=== PATIENT | male | born 1975 | race Caucasian/White ===

== ENCOUNTER 2016-11-06 07:15 | Emergency (ER) | payer BC ==
[2016-11-06] MEDS ORDERED: TETRACAINE HCL 0.5% OPH SOLN 2 ML OS ONE (09:36)
--- NOTE | 2016-11-06 10:04 | RADIOLOGY REPORT (SQ) ---
EXAM DESCRIPTION: CT HEAD WITHOUT COMPLETED DATE/TIME: 11/06/2016 9:52 am REASON FOR STUDY: headache COMPARISON: None. TECHNIQUE: Axial images acquired through the brain without intravenous contrast. Images reviewed wi th bone, brain and subdural windows. Images stored on PACS. All CT scanners at this facility use dose modulation, iterative reconstruction, and/or weight based d osing when appropriate to reduce radiation dose to as low as reasonably achievable (ALARA). [facility]: Dose Right [facility]: CareDose [facility]: Dose Right [facility]: Teradose 4D [facility]: Apprity RADIATION DOSE: 64.61 mGy. LIMITATIONS: None. FINDINGS: VENTRICLES: Normal size and contour. CEREBRUM: No masses. No hemorrhage. No midline shift. Normal javier/white matter differentiation. N o evidence for acute infarction. CEREBELLUM: No masses. No hemorrhage. No alteration of density. No evidence for acute infarction. EXTRAAXIAL SPACES: No fluid collections. No masses. ORBITS AND GLOBE: No intra- or extraconal masses. Normal contour of globe without masses. CALVARIUM: No fracture. PARANASAL SINUSES: No fluid or mucosal thickening. SOFT TISSUES: No mass or hematoma. OTHER: No other significant finding. IMPRESSION: NORMAL BRAIN CT WITHOUT CONTRAST. TECHNICAL DOCUMENTATION: JOB ID: [id number] Quality ID # [id number]: Final reports with documentation of one or more dose reduction techniques (e.g., Au tomated exposure control, adjustment of the mA and/or kV according to patient size, use of iterative reconstruction technique) 2010 [employer]- All Rights Reserved
--- NOTE | 2016-11-06 10:05 | RADIOLOGY REPORT (SQ) ---
EXAM DESCRIPTION: CERV SP 3 VIEW OR LESS COMPLETED DATE/TIME: 11/06/2016 9:51 am REASON FOR STUDY: headache neck pain COMPARISON: None. NUMBER OF VIEWS: Three views. TECHNIQUE: AP, lateral and odontoid radiographic images acquired of the cervical spine. LIMITATIONS: None. FINDINGS: MINERALIZATION: Normal. ALIGNMENT: Anatomic. VERTEBRAE: Vertebral bodies of normal height. DISCS: Mild disc space loss of height with anterior osteophyte formation at C6-7 HARDWARE: None in the spine. SOFT TISSUES: No masses or calcifications. Lung apices clear. OTHER: No other significant finding. IMPRESSION: Mild degenerative disc changes at C6-7 TECHNICAL DOCUMENTATION: JOB ID: [id number] [employer]- All Rights Reserved
[2016-11-06] MEDS ORDERED: POLYMYXIN B SULFATE/TMP OPH SOLN 10 ML OS ONE (11:57)
--- NOTE | 2016-11-06 11:57 | ER Document Report ---
ED General - General Chief Complaint: Headache Stated Complaint: LEFT NECK AND SHOULDER PAIN Time Seen by Provider: 11/06/16 09:25 TRAVEL OUTSIDE OF THE [place] IN LAST 30 DAYS: No - HPI Patient complains to provider of: Head pain left eye pain left shoulder pain Notes: Coming in for the above complaints today of starting this morning. Patient states headache and frontal states has a history of lupus states never has had a headache like this before. Localized in the frontal region right above the frontal sinus area. Patient also complains of left eye pain patient does wear contacts that she does sleep and contacts. Patient also complains of left neck and shoulder pain. States sharp tingling intermittent. Patient does state he has had a history of a heart attack in the past with removal of clots noted stent placement. Patient otherwise denies any past medical history. Denies fevers chills nausea vomiting diarrhea. - Related Data Allergies/Adverse Reactions: No Known Allergies Allergy (Verified 11/06/16 07:28) Past Medical History - Social History Smoking Status: Current Every Day Smoker Chew tobacco use (# tins/day): No Frequency of alcohol use: None Drug Abuse: None Family History: Reviewed & Not Pertinent, Other - Father--[place] at 60. Patient has suicidal ideation: No Patient has homicidal ideation: No - Past Medical History Cardiac Medical History: Reports: Hx Heart Attack, Hx Hypertension Renal/ Medical History: Denies: Hx Peritoneal Dialysis Past Surgical History: Reports: Hx Cardiac Catheterization - Immunizations Hx Diphtheria, Pertussis, Tetanus Vaccination: Yes Review of Systems - Review of Systems Constitutional: Other - Pain eye pain shoulder pain EENT: No symptoms reported Cardiovascular: No symptoms reported Respiratory: No symptoms reported Gastrointestinal: No symptoms reported Genitourinary: No symptoms reported Male Genitourinary: No symptoms reported Musculoskeletal: No symptoms reported Skin: No symptoms reported Hematologic/Lymphatic: No symptoms reported Neurological/Psychological: No symptoms reported Physical Exam - Vital signs Vitals: Temp Pulse Resp BP Pulse Ox 97.6 F 82 16 137/80 H 97 11/06/16 07:28 11/06/16 07:28 11/06/16 07:28 11/06/16 07:28 11/06/16 07:28 Interpretation: Normal - General General appearance: Appears well, Alert - HEENT Head: Normocephalic, Atraumatic Eyes: Normal Pupils: PERRL Neck: Other - Fluids reproducible paraspinal neck pain Notes: Evaluation of the patient's eye after tetracaine instillation and floor stating shows that patient has been forcing uptake. There is no signs of corneal abrasion or ulcer formation. Patient does have a stye formation of the bottom and upper lip. There is mild swelling of the upper and bottom lip. No signs of orbital cellulitis. Patient does have ocular motions intact. - Respiratory Respiratory status: No respiratory distress Chest status: Nontender Breath sounds: Normal Chest palpation: Normal - Cardiovascular Rhythm: Regular Heart sounds: Normal auscultation Murmur: No - Abdominal Inspection: Normal Distension: No distension Bowel sounds: Normal Tenderness: Nontender Organomegaly: No organomegaly - Back Back: Normal, Nontender - Extremities General upper extremity: Normal inspection, Nontender, Normal color, Normal ROM , Normal temperature General lower extremity: Normal inspection, Nontender, Normal color, Normal ROM , Normal temperature, Normal weight bearing. No: Sallie's sign - Neurological Neuro grossly intact: Yes Cognition: Normal Orientation: AAOx4 Rafa Coma Scale Eye Opening: Spontaneous Rafa Coma Scale Verbal: Oriented Hackberry Coma Scale Motor: Obeys Commands Hackberry Coma Scale Total: 15 Speech: Normal Motor strength normal: LUE, RUE, LLE, RLE Sensory: Normal - Psychological Associated symptoms: Normal affect, Normal mood - Skin Skin Temperature: Warm Skin Moisture: Dry Skin Color: Normal Course - Re-evaluation Re-evalutation: 11/06/16 15:22 EKG x-ray of the neck and head CT were performed showing diffuse arthritic changes in the neck had been EKG negative. Eye examination is as stated. Patient will begin Polytrim drops for the stye formation. Patient was educated about treatment of the stye. Patient was given for Fioricet for his headache. 11/06/16 15:24 - Vital Signs Vital signs: Temp Pulse Resp BP Pulse Ox 97.5 F 63 16 122/83 97 11/06/16 12:18 11/06/16 12:18 11/06/16 12:18 11/06/16 12:18 11/06/16 12:18 Procedures - Eye Procedure Left Notes: 11/06/16 15:24 Evaluation of the patient's eye after tetracaine instillation and floor stating shows that patient has been forcing uptake. There is no signs of corneal abrasion or ulcer formation. Patient does have a stye formation of the bottom and upper lip. There is mild swelling of the upper and bottom lip. No signs of orbital cellulitis. Patient does have ocular motions intact. Discharge - Discharge Clinical Impression: Hordeolum of left eye Qualifiers: Hordeolum type: internum Eyelid: unspecified eyelid Qualified Code(s): H00.026 - Hordeolum internum left eye, unspecified eyelid Headache Qualifiers: Headache type: unspecified Headache chronicity pattern: unspecified pattern Intractability: not intractable Qualified Code(s): R51 - Headache Condition: Good Disposition: HOME, SELF-CARE Instructions: Headache ([facility]), Sty ([facility]), Oral Narcotic Medication ([facility]) Additional Instructions: The eyedrops given to you here in the ER 2 drops 4 times a day for 7 days. Medication as prescribed. He may also take Tylenol and Motrin if not taking the headache medicine. Prescriptions: Butalb/Acetaminophen/Caffeine [Fioricet 50-300-40 mg Capsule] 1 cap PO Q4 PRN # 20 cap PRN Reason: Forms: Return to Work Referrals: DELFINA ANGELES MD [Primary Care Provider] - Follow up as needed
[2016-11-06 12:29] VITALS: BP 122/83
--- NOTE | 2016-11-06 13:26 | EKG REPORT ---
SEVERITY:- ABNORMAL ECG - SINUS RHYTHM NONSPECIFIC INTRAVENTRICULAR CONDUCTION DELAY : Confirmed by: Yinka Grande 06-Nov-2016 13:26:38
== END 2016-11-06 12:29 | disposition home or self-care (01) ==
LOC: ER 07:15
DX: H00.026 Hordeolum internum left eye, unspecified eyelid (principal); R51 Headache; M54.2 Cervicalgia; M25.512 Pain in left shoulder; H57.12 Ocular pain, left eye; I10 Essential (primary) hypertension; I25.2 Old myocardial infarction
CPT/HCPCS: 93005; 99284; 72040; 70450; 93010; J3490

== ENCOUNTER 2017-05-15 18:31 | Emergency (ER) | payer SELFPAY ==
[2017-05-15] MEDS ORDERED: HYDROCODONE/ACETAMINOPHEN 10-325 MG TABLET PO ONE (19:15)
[2017-05-15] MEDS ORDERED: ONDANSETRON 4 MG TAB.RAPDIS PO ONE (19:15)
--- NOTE | 2017-05-15 19:28 | ER Document Report ---
ED Medical Screen (RME) - General Mode of Arrival: Ambulatory Information source: Patient TRAVEL OUTSIDE OF THE [place] IN LAST 30 DAYS: No - General Chief Complaint: Headache Stated Complaint: HEADACHE Time Seen by Provider: 05/15/17 19:05 Notes: Of note, patient shows me later a MRI of his cervical spine which showed a mass thought as above which potentially could be a reason to have obstructing hydrocephalus. Though he does not have classic clinical symptoms but this is a change in his headache, a CT of the head was ordered to evaluate for this. ( MEJIA KRISHNAMURTHY) Patient is a 41 year old male with a history of headaches presents to the emergency department complaining of a headache onset last night around 1900. Patient states his current symptoms are similar to the headaches that he normally gets although his current headache is worse and unresponsive to his medication of Metaxolone. 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 Patient also states that his legs feel weak and he has nausea. Patient denies vomiting, diarrhea, or blurry vision. GENERAL: Alert, interacts well. No acute distress. HEAD: Normocephalic, atraumatic. EYES: Pupils equal, round, and reactive to light. Extraocular movements intact. NECK: Full range of motion. Supple. Trachea midline. LUNGS: Clear to auscultation bilaterally, no wheezes, rales, or rhonchi. No respiratory distress. HEART: Regular rate and rhythm. No murmurs, gallops, or rubs.. NEUROLOGICAL: Alert and oriented x3. Normal speech. cranial nerves II through XII grossly intact. PSYCH: Normal affect, normal mood. SKIN: Warm, dry, normal turgor. No rashes or lesions noted I have greeted and performed a rapid initial assessment of this patient. A comprehensive ED assessment and evaluation of the patient, analysis of test results and completion of the medical decision making process will be conducted by additional ED providers. (RAJINDER ALCALA) - Related Data Allergies/Adverse Reactions: No Known Allergies Allergy (Verified 05/15/17 18:33) Home Medications: Current Home Medications Celecoxib [Celecoxib] 1 cap PO DAILY 05/15/17 [History] Metaxalone [Metaxalone] 1 tab PO TID PRN 05/15/17 [History] Nicotine [Nicoderm 7 mg/24 Hr Transdermal Patch] 1 patch TOP DAILY 05/15/17 [ History] Past Medical History - General Information source: Patient - Social History Frequency of alcohol use: Rare Drug Abuse: None - Past Medical History Cardiac Medical History: Reports: Hx Heart Attack, Hx Hypertension Past Surgical History: Reports: Hx Cardiac Catheterization - Immunizations Hx Diphtheria, Pertussis, Tetanus Vaccination: Yes - Vital signs Vitals: Temp Pulse Resp BP Pulse Ox 97.8 F 82 18 143/88 H 98 05/15/17 18:41 05/15/17 18:41 05/15/17 18:41 05/15/17 18:41 05/15/17 18:41 - Vital Signs Vital signs: Temp Pulse Resp BP Pulse Ox 97.8 F 82 18 143/88 H 98 05/15/17 18:41 05/15/17 18:41 05/15/17 18:41 05/15/17 18:41 05/15/17 18:41 Scribe Documentation - Scribe Written by Ruel:: Ruel Mcmahon, 05/15/2017 19:28 acting as scribe for :: Shawn
[2017-05-15 19:45] LABS: ABSOLUTE BASOPHILS # (AUTO) 0.1 10^3/uL (0.0-0.2); ABSOLUTE EOSINOPHILS # (AUTO) 0.1 10^3/uL (0.0-0.6); ABSOLUTE MONOCYTES (AUTO) 0.6 10^3/uL (0.1-1.4); BASOPHILS % (AUTO) 0.5 % (0-2); EOSINOPHILS % (AUTO) 0.9 % (0-6); HEMATOCRIT 42.8 % (37.9-51.0); HEMOGLOBIN 14.9 g/dL (13.5-17.0); HGB HCT DIFFERENCE 1.9; LYMPHOCYTES % (AUTO) 13.7 % (13-45); MEAN CORPUSCULAR HEMOGLOBIN 30.2 pg (27.0-33.4); MEAN CORPUSCULAR HGB CONC 34.8 g/dL (32.0-36.0); MEAN CORPUSCULAR VOLUME 87 fl (80-97); RED BLOOD COUNT 4.93 10^6/uL (4.35-5.55); RED CELL DISTRIBUTION WIDTH 13.1 % (11.5-14.0); SEGMENTED NEUTROPHILS % (AUTO) 80.9 % (42-78); WHITE BLOOD COUNT 14.9 10^3/uL (4.0-10.5)
--- NOTE | 2017-05-15 19:48 | RADIOLOGY REPORT (SQ) ---
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 Images reviewed wi th bone, brain and subdural windows. Images stored on PACS. All CT scanners at this facility use dose modulation, iterative reconstruction, and/or weight based d osing when appropriate to reduce radiation dose to as low as reasonably achievable (ALARA). [facility]: Dose Right [facility]: CareDose [facility]: Dose Right [facility]: Teradose 4D [facility]: Smart [employer] RADIATION DOSE: CT Rad equipment meets quality standard of care and radiation dose reduction techniq ues were employed. CTDIvol: 64.6 mGy. DLP: 1034 mGy-cm. mGy. LIMITATIONS: None. FINDINGS: VENTRICLES: Normal size and contour. CEREBRUM: No masses. No hemorrhage. No midline shift. No evidence for acute infarction. Normal gra y/white matter differentiation. No areas of low density in the white matter. CEREBELLUM: No masses. No hemorrhage. No alteration of density. No evidence for acute infarction. EXTRAAXIAL SPACES: No fluid collections. No masses. ORBITS AND GLOBE: No intra- or extraconal masses. Normal contour of globe without masses. CALVARIUM: No fracture. PARANASAL SINUSES: Mild mucosal thickening bilateral ethmoid sinuses and moderate mucosal thickening left maxillary sinus. SOFT TISSUES: No mass or hematoma. OTHER: No other significant finding. IMPRESSION: PARANASAL SINUS DISEASE. OTHERWISE UNREMARKABLE NONCONTRAST CT HEAD. EVIDENCE OF ACUTE STROKE: NO. COMMENT: Quality ID # [id number]: Final reports with documentation of one or more dose reduction techniques (e.g., Automated exposure control, adjustment of the mA and/or kV according to patient size, use of iterative reconstruction technique) TECHNICAL DOCUMENTATION: JOB ID: [id number] [employer]- All Rights Reserved
[2017-05-15 20:05] LABS: ANION GAP 14 (5-19); BLOOD UREA NITROGEN 14 mg/dL (7-20); CALCIUM 9.5 mg/dL (8.4-10.2); CARBON DIOXIDE 25 mmol/L (22-30); CHLORIDE 102 mmol/L (98-107); CREATININE RESULT 0.84 mg/dL (0.52-1.25); GLUCOSE 112 mg/dL (75-110); POTASSIUM 4.5 mmol/L (3.6-5.0); SODIUM 140.5 mmol/L (137-145)
[2017-05-15] MEDS ORDERED: DIPHENHYDRAMINE HCL 50 MG/ML VIAL IV ONE (21:52)
[2017-05-15] MEDS ORDERED: PROCHLORPERAZINE EDISYLATE INJ 10 MG/2 ML VIAL IV ONE (21:52)
[2017-05-15] MEDS ORDERED: KETOROLAC TROMETHAMINE INJ/PF 30 MG/1 ML SDV IV ONE (21:52)
[2017-05-15] MEDS ORDERED: DEXAMETHASONE SOD PHOS INJ 10 MG/1 ML VIAL IV ONE (21:52)
--- NOTE | 2017-05-15 21:53 | ER Document Report ---
ED General - General Chief Complaint: Headache Stated Complaint: HEADACHE Time Seen by Provider: 05/15/17 19:05 Mode of Arrival: Ambulatory Notes: Patient is a 41-year-old male with a past medical history of recurrent headaches who presents with a headache that started approximately 7 PM this evening and has gotten gradually worse since that time. Patient does describe it as a constant, dull, throbbing global headache that is worsened by lights, sounds, and talking. Patient states his current symptoms are similar to the headaches that he normally gets although his current headache is worse and unresponsive to the medicine that he usually uses: Metaxolone. 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 Patient states he feels extremely nauseated but denies any focal weakness, numbness, fever or altered mental status. He has not seen his primary care doctor regarding today's concerns. TRAVEL OUTSIDE OF THE [place] IN LAST 30 DAYS: No - Related Data Allergies/Adverse Reactions: No Known Allergies Allergy (Verified 05/15/17 18:33) Home Medications: Current Home Medications Celecoxib [Celecoxib] 1 cap PO DAILY 05/15/17 [History] Metaxalone [Metaxalone] 1 tab PO TID PRN 05/15/17 [History] Nicotine [Nicoderm 7 mg/24 Hr Transdermal Patch] 1 patch TOP DAILY 05/15/17 [ History] Past Medical History - General Information source: Patient - Social History Smoking Status: Current Every Day Smoker Frequency of alcohol use: Rare Drug Abuse: None Lives with: Spouse/Significant other Family History: Reviewed & Not Pertinent, Other - Father--[place] at 60. Patient has suicidal ideation: No Patient has homicidal ideation: No - Past Medical History Cardiac Medical History: Reports: Hx Heart Attack, Hx Hypertension Renal/ Medical History: Denies: Hx Peritoneal Dialysis Past Surgical History: Reports: Hx Cardiac Catheterization - Immunizations Hx Diphtheria, Pertussis, Tetanus Vaccination: Yes Review of Systems - Review of Systems Notes: Constitutional: Negative for fever. HENT: Negative for sore throat. Eyes: Negative for visual changes. Cardiovascular: Negative for chest pain. Respiratory: Negative for shortness of breath. Gastrointestinal: Positive for nausea Genitourinary: Negative for dysuria. Musculoskeletal: Negative for back pain. Skin: Negative for rash. Neurological: Positive for headache 10 point ROS negative except as marked above and in HPI. Physical Exam - Vital signs Vitals: Temp Pulse Resp BP Pulse Ox 97.8 F 82 18 143/88 H 98 05/15/17 18:41 05/15/17 18:41 05/15/17 18:41 05/15/17 18:41 05/15/17 18:41 Interpretation: Normal Notes: PHYSICAL EXAMINATION: GENERAL: Well-appearing, well-nourished and in no acute distress. HEAD: Atraumatic, normocephalic. EYES: Pupils equal round and reactive to light, extraocular movements intact, sclera anicteric, conjunctiva are normal. ENT: nares patent, oropharynx clear without exudates. Moist mucous membranes. NECK: Normal range of motion, supple without lymphadenopathy LUNGS: Breath sounds clear to auscultation bilaterally and equal. No wheezes rales or rhonchi. HEART: Regular rate and rhythm without murmurs ABDOMEN: Soft, nontender, normoactive bowel sounds. No guarding, no rebound. No masses appreciated. EXTREMITIES: Normal range of motion, no pitting or edema. No cyanosis. NEUROLOGICAL: Face symmetric. Tongue protrudes midline. Extraocular motions intact. Pupils are 2 mm and equally reactive. Normal speech, normal gait. 5 out of 5 strength in both the distal and proximal upper and lower extremities bilaterally. Sensation is grossly intact throughout. Finger to nose testing normal. Pronator drift normal. PSYCH: Normal mood, normal affect. SKIN: Warm, Dry, normal turgor, no rashes or lesions noted. Course - Re-evaluation Re-evalutation: 05/15/17 21:52 Presentation of a headache that appears to be most consistent with tension versus migrainous type headache. Headache was not maximal in onset, patient has no focal neurologic deficits, no nuchal rigidity, vital signs within normal limits, no papilledema, and patient is overall well in appearance. Based on clinical history and examination I do not suspect an acute subarachnoid hemorrhage, dural venous sinus thrombosis, acute meningitis, or intercranial mass. Patient does have a history of possible hydrocephalus secondary to a mass in his cervical spine although CT the head today does not show any evidence of hydrocephalus or any other acute abnormality. Labs obtained in triage otherwise unremarkable. Patient has no additional complaints regarding neck pain or inability to mobilize the neck. Proceed with a headache cocktail and reassess 05/15/17 23:21 Patient is a complete resolution of his headache. He remains without any neurologic deficits. At this time will discharge with return precautions and follow-up recommendations. Verbal discharge instructions given a the bedside and opportunity for questions given. Medication warnings reviewed. Patient is in agreement with this plan and has verbalized understanding of return precautions and the need for primary care follow-up in the next 24-72 hours. - Vital Signs Vital signs: Temp Pulse Resp BP Pulse Ox 97.8 F 70 16 121/82 96 05/15/17 23:34 05/15/17 23:34 05/15/17 23:34 05/15/17 23:34 05/15/17 23:34 - Laboratory Result Diagrams: 05/15/17 19:26 05/15/17 19:26 Laboratory results interpreted by me: 05/15/17 05/15/17 19:26 19:26 WBC 14.9 H Seg Neutrophils % 80.9 H Absolute Neutrophils 12.0 H Glucose 112 H - Diagnostic Test Radiology reviewed: Image reviewed, Reports reviewed Radiology results interpreted by me: 05/15/17 23:22 CT head: No acute intracranial bleed Discharge - Discharge Clinical Impression: Nausea Headache Qualifiers: Headache type: unspecified Headache chronicity pattern: acute headache Intractability: not intractable Qualified Code(s): R51 - Headache Condition: Good Disposition: HOME, SELF-CARE Additional Instructions: You have been seen in the Emergency Department (ED) for a headache. Please use Tylenol (acetaminophen) or Motrin (ibuprofen) as needed for symptoms, but only as written on the box. As we have discussed, please follow up with your primary care doctor as soon as possible regarding today's ED visit and your headache symptoms. Call your doctor or return to the ED if you have a worsening headache, sudden and severe headache, confusion, slurred speech, facial droop, weakness or numbness in any arm or leg, extreme fatigue, or other symptoms that concern you. Referrals: JIMI ANGELES MD [Primary Care Provider] - Follow up as needed
[2017-05-15 23:37] VITALS: BP 121/82
== END 2017-05-15 23:38 | disposition home or self-care (01) ==
LOC: ER 18:31
DX: R51 Headache (principal); R11.0 Nausea; F17.200 Nicotine dependence, unspecified, uncomplicated; I10 Essential (primary) hypertension; I25.2 Old myocardial infarction
CPT/HCPCS: 99284; 96374; 96375; 36415; 85025; 80048; 70450; J1200; S0119; J1885; J0780; J1100

== ENCOUNTER → 2017-07-18 | Outpatient (CLI) | payer BC ==
--- NOTE | 2017-07-18 10:13 | RADIOLOGY REPORT (SQ) ---
EXAM DESCRIPTION: LUMBAR SPINE COMPLETE COMPLETED DATE/TIME: 07/18/2017 10:01 am REASON FOR STUDY: PARESTHESIA OF SKIN R20.2 PARESTHESIA OF SKIN COMPARISON: None. NUMBER OF VIEWS: Five views including obliques. TECHNIQUE: AP, lateral, oblique, and sacral radiographic images acquired of the lumbar spine. LIMITATIONS: None. FINDINGS: MINERALIZATION: Normal. SEGMENTATION: Normal. No transitional anatomy. ALIGNMENT: Normal. VERTEBRAE: Maintained height. No fracture or worrisome bone lesion. DISCS: Preserved height. No significant osteophytes or end plate irregularity. POSTERIOR ELEMENTS: Pedicles and facets are intact. No pars defect or posterior arch defects. HARDWARE: None in the spine. PARASPINAL SOFT TISSUES: Normal. PELVIS: Intact as visualized. No fractures or worrisome bone lesions. SI joints intact. OTHER: No other significant finding. IMPRESSION: NORMAL 5 VIEW LUMBAR SPINE. TECHNICAL DOCUMENTATION: JOB ID: [id number] [employer]- All Rights Reserved
== END ==
LOC: OD 09:34
PROVIDERS: ATTEND Physician Assistant
DX: R20.2 Paresthesia of skin (principal)
CPT/HCPCS: 72110

== ENCOUNTER → 2018-03-09 | Outpatient (CLI) | payer BC ==
--- NOTE | 2018-03-09 11:33 | RADIOLOGY REPORT (SQ) ---
EXAM DESCRIPTION: ANKLE RIGHT COMPLETE COMPLETED DATE/TIME: 03/09/2018 10:52 am REASON FOR STUDY: RT FOOT PAIN M79.671 PAIN IN RIGHT FOOT COMPARISON: None. NUMBER OF VIEWS: Three views. TECHNIQUE: AP, lateral, and oblique radiographic images acquired of the right ankle. LIMITATIONS: None. FINDINGS: MINERALIZATION: Normal. BONES: No acute fracture or dislocation. No worrisome bone lesions. JOINTS: No effusions. SOFT TISSUES: No soft tissue swelling. No foreign body. OTHER: Plantar calcaneal spurs. IMPRESSION: NO RADIOGRAPHIC EVIDENCE OF ACUTE INJURY. TECHNICAL DOCUMENTATION: JOB ID: [id number] [employer]- All Rights Reserved Reading location - IP/workstation name: [email or web address]
== END ==
LOC: OD 10:24
PROVIDERS: ATTEND Physician Assistant
DX: M79.671 Pain in right foot (principal)